=== PATIENT | female | born 1950 | race Caucasian/White ===

== ENCOUNTER 2019-06-21 13:38 | Day surgery (SDC) | payer MEDICARE, BC ==
[~2019-06-21] VITALS: Ht 166.4 cm; Wt 82.1 kg
[2019-06-21] VITALS (7 sets, daily range): BP systolic 102–133; BP diastolic 62–85; PULSE 55–116; TEMP 96.6–97.1
[2019-06-21] MEDS ORDERED: ZOLOFT 100MG100 MG PO (14:32)
[2019-06-21] MEDS ORDERED: XANAX 0.5MG0.5 MG PO (14:33)
[2019-06-21] MEDS ORDERED: RYTARY1 CE3 PO (14:34)
[2019-06-21] MEDS ORDERED: NEXIUM 40MG40 MG PO (14:35)
[2019-06-21] MEDS ORDERED: ZETIA 10MG TAB10 MG PO (14:35)
[2019-06-21] MEDS ORDERED: ZYRTEC 10MG10 MG PO (14:36)
[2019-06-21] MEDS ORDERED: VITAMIN D32000 I1 PO (14:37)
[2019-06-21] MEDS ORDERED: SYNTHROID0.05 MG/TA PO (14:38)
[2019-06-21] MEDS ORDERED: TOPROL XL 25MG25 MG PO (14:39)
[2019-06-21] MEDS ORDERED: ELIQUIS 5MG PO (14:40)
[2019-06-21] MEDS ORDERED: ASPIRIN E.C. 8181 MG PO (14:41)
--- NOTE | 2019-06-21 14:43 | NUR ---
TO RM AT 1355- CALL LIGHT IN REACH FRIEND SHAN FRIEND AT BEDSIDE/
--- NOTE | 2019-06-21 15:50 | NUR ---
Patient arrives to [facility] via cart, accompanied by [facility] RN Stephanie. Patient is alert and oriented. She ambulates with standby assist to the chair in the room. Monitoring is applied - VSS and WNL on room air. She is cold and is provided warm blankets. She denies any pain or nausea. She is offered and receives juice to drink - tolerates well. Her friend is at the bedside. Call light in reach. She may discharge home at [address] Jorge.
--- NOTE | 2019-06-21 16:20 | NUR ---
Patient is resting comfortably in room. VSS and WNL on room air. Her pulse is in the 50s, normal per the patient. Her HR 110s on admission. She states that she has a-fib.
--- NOTE | 2019-06-21 16:35 | NUR ---
Patient is resting comfortably in room, chatting with friend. Denies any pain, nausea, or needs at this time.
--- NOTE | 2019-06-21 16:50 | NUR ---
VSS and WNL on room air. Escorted to the restroom and returned to room. Monitoring reapplied.
--- NOTE | 2019-06-21 17:26 | NUR ---
Patient has met discharge criteria. Discharge instructions discussed, denies any questions, and verbalizes understanding. PIV removed with catheter intact and hemostasis achieved. Patient changes to clothing independently. She is escorted to the exit via wheelchair by staff. Discharged to home with ride in private vehicle at 1726.
== END 2019-06-21 17:27 | disposition home or self-care (01) ==
LOC: SDCO 13:38
DX: K80.50 Calculus of bile duct without cholangitis or cholecystitis without obstruction (principal); K80.20 Calculus of gallbladder without cholecystitis without obstruction; K21.9 Gastro-esophageal reflux disease without esophagitis; G20 Parkinson's disease; J45.909 Unspecified asthma, uncomplicated; I10 Essential (primary) hypertension; F41.9 Anxiety disorder, unspecified; F32.9 Major depressive disorder, single episode, unspecified; E03.9 Hypothyroidism, unspecified; Z88.0 Allergy status to penicillin; Z88.1 Allergy status to other antibiotic agents; Z88.8 Allergy status to other drugs, medicaments and biological substances; Z90.710 Acquired absence of both cervix and uterus; Z79.82 Long term (current) use of aspirin; Z86.718 Personal history of other venous thrombosis and embolism
CPT/HCPCS: C1769; J7030; Q9967

== ENCOUNTER 2019-09-27 07:49 | Day surgery (SDC) | payer MEDICARE, BC ==
[~2019-09-27] VITALS: Ht 167.6 cm; Wt 85.0 kg
[2019-09-27] VITALS (7 sets, daily range): BP systolic 104–113; BP diastolic 56–69; PULSE 60–67; TEMP 96.3–96.9
[~2019-09-27 07:49] MED LIST: ASPIRIN E.C. 8181 MG PO; ELIQUIS 5MG PO; NEXIUM 40MG40 MG PO; RYTARY1 CE3 PO; SYNTHROID0.05 MG/TA PO; TOPROL XL 25MG25 MG PO; VITAMIN D32000 I1 PO; XANAX 0.5MG0.5 MG PO; ZETIA 10MG TAB10 MG PO; ZOLOFT 100MG100 MG PO; ZYRTEC 10MG10 MG PO
[2019-09-27] MEDS ORDERED: COLACE 100100 MG/CAP PO (08:17)
[2019-09-27 08:33] LABS: INR 1.1 (0.8-3.0)
[2019-09-27 08:36] LABS: CALCIUM 9.2 mg/dL (8.4-10.2); CREATININE, serum 0.76 (0.52-1.25); HEMATOCRIT 41.2 % (37.0-47.0); HEMOGLOBIN 14.3 g/dl (12.5-16.0); MEAN CELL VOLUME 93 fl (80.0-100.0); MEAN CORPUSCULAR HEMOGLOBIN 32 pg (27.0-31.0); MEAN CORPUSCULAR HGB CONC 35 g/dl (33.0-37.0); PARTIAL THROMBOPLASTIN TIME 37.1 SECONDS (26.0-37.0); PLATELET COUNT 176 K/mm3 (130-400); POTASSIUM 4.2 mmol/L (3.4-5.0); RED BLOOD COUNT 4.41 M/mm3 (4.10-5.30); REDCELL DISTRIBUTION WIDTH-CV 13.1 % (11.5-14.5)
[2019-09-27 09:06] LABS: THYROID STIMULATING HORMONE 8.56 uIU/mL (0.465-4.680)
--- NOTE | 2019-09-27 10:00 | NUR ---
PT RETURNS TO ROOM SLIGHTLY SLEEPY.
--- NOTE | 2019-09-27 11:00 | NUR ---
PT GIVEN SNACK, ATE 100%
--- NOTE | 2019-09-27 11:25 | NUR ---
PT GETTING DRESSED AND RIDE CALLED. WENT OVER DC INFORMATION WITH PT. TAKEN DOWNSTAIRS TO RIDE
[2019-09-27] MEDS ORDERED: MULTAQ400 MG PO (13:52)
== END 2019-09-27 12:40 | disposition home or self-care (01) ==
LOC: COL.CAR 07:49
PROVIDERS: Internal Medicine Cardiovascular Disease
DX: I34.0 Nonrheumatic mitral (valve) insufficiency (principal); I48.0 Paroxysmal atrial fibrillation; I10 Essential (primary) hypertension; J45.20 Mild intermittent asthma, uncomplicated; G25.81 Restless legs syndrome; E03.9 Hypothyroidism, unspecified; F41.9 Anxiety disorder, unspecified; F32.9 Major depressive disorder, single episode, unspecified; G20 Parkinson's disease; Z79.899 Other long term (current) drug therapy; Z90.710 Acquired absence of both cervix and uterus; Z90.89 Acquired absence of other organs; Z79.82 Long term (current) use of aspirin; Z79.01 Long term (current) use of anticoagulants; Z88.0 Allergy status to penicillin; Z88.8 Allergy status to other drugs, medicaments and biological substances
CPT/HCPCS: J2704

== ENCOUNTER 2021-02-23 09:23 | Inpatient (IN) | payer MEDICARE, BC ==
[~2021-02-23] VITALS: Ht 167.6 cm; Wt 91.8 kg
[~2021-02-23 09:23] MED LIST changes: +COLACE 100100 MG/CAP PO; +MULTAQ400 MG PO
[2021-02-23] MEDS ORDERED: ERGOCALCIFER50000 IU PO (09:47)
[2021-02-23] MEDS ORDERED: MIRALAX PA17 GM/Dose PO (09:49)
[2021-02-23] MEDS ORDERED: CLEOCIN HCL300 MG PO (09:53)
[2021-02-23] MEDS ORDERED: FLEXERIL 1010 MG/TAB PO (09:54)
[2021-02-23] MEDS ORDERED: LASIX 40MG TABL40 MG PO (09:55)
[2021-02-23 09:56] VITALS: BP 93/60; PULSE 90; TEMP 97.6
[2021-02-23] MEDS ORDERED: TRAVEL SICKNESS25 MG PO (09:56)
[2021-02-23] MEDS ORDERED: KLOR-CON SPRIN10 MEQ PO (09:57)
[2021-02-23] MEDS ORDERED: ULTRACET TABL1 UDTAB PO (09:58)
[2021-02-23 10:33] LABS: BASO # 0.1 K/mm3 (0.0-0.2); BASO % 0.7 % (0.0-2.0); EOS # 0.4 K/mm3 (0.0-0.7); EOS % 5.1 % (0-4.0); GRAN # 4.6 K/mm3 (1.4-6.5); HEMOGLOBIN 11.7 g/dl (12.5-16.0); LYMPH # 1.4 K/mm3 (1.2-3.4); LYMPH % 19.8 % (20.0-51.0); MEAN CELL VOLUME 91 fl (80.0-100.0); MEAN CORPUSCULAR HEMOGLOBIN 29 pg (27.0-31.0); MEAN CORPUSCULAR HGB CONC 32 g/dl (33.0-37.0); MEAN PLATELET VOLUME 9.9 fl (7.4-10.4); MONO # 0.6 K/mm3 (0.1-0.6); MONO % 8.1 % (1.7-9.3); PLATELET COUNT 171 K/mm3 (130-400); RED BLOOD COUNT 4.03 M/mm3 (4.10-5.30); REDCELL DISTRIBUTION WIDTH-CV 14.1 % (11.5-14.5)
[2021-02-23 10:34] LABS: HEMATOCRIT 36.6 % (37.0-47.0)
[2021-02-23 10:38] LABS: INR 1.5 (0.8-3.0); PROTHROMBIN TIME 16.5 SECONDS (9.7-12.8)
[2021-02-23 10:48] LABS: ALANINE AMINOTRANSFERASE < 6 U/L (0-55); ALBUMIN 3.9 gm/dL (3.4-4.8); ALKALINE PHOSPHATASE 119 U/L (0-750); ANION GAP 10 mmol/L (7-16); AST,SGOT 13 U/L (5-34); BILIRUBIN,TOTAL 0.5 mg/dL (0.2-1.2); BLOOD UREA NITROGEN 27 mg/dL (10-20); CALCIUM 9.2 mg/dL (8.4-10.2); CARBON DIOXIDE 23 mmol/L (23-31); CHLORIDE 107 mmol/L (98-107); CREATININE, serum 0.83 mg/dL (0.57-1.11); GLUCOSE 116 mg/dL (70-99); MAGNESIUM 1.9 mg/dL (1.6-2.6); POTASSIUM 3.5 mmol/L (3.5-4.5); SODIUM 140 mmol/L (136-145)
[2021-02-23 12:18] VITALS: BP 104/71; PULSE 93; TEMP 97.9
[2021-02-23 16:28] VITALS: BP 103/74; PULSE 100; TEMP 98.6
[2021-02-23 20:00] VITALS: BP 106/72; PULSE 62; TEMP 97.6
[2021-02-23 23:50] VITALS: BP 104/82; PULSE 77; TEMP 97.7
[2021-02-24 03:16] VITALS: BP 103/71; PULSE 61; TEMP 97.8
[2021-02-24 07:26] LABS: BASO % 0.7 % (0.0-2.0); EOS # 0.3 K/mm3 (0.0-0.7); EOS % 4.6 % (0-4.0); GRAN # 3.5 K/mm3 (1.4-6.5); GRAN % 61.2 % (42.2-75.2); HEMOGLOBIN 11.3 g/dl (12.5-16.0); LYMPH # 1.4 K/mm3 (1.2-3.4); MEAN CELL VOLUME 92 fl (80.0-100.0); MEAN CORPUSCULAR HEMOGLOBIN 29 pg (27.0-31.0); MEAN CORPUSCULAR HGB CONC 32 g/dl (33.0-37.0); MEAN PLATELET VOLUME 10.1 fl (7.4-10.4); MONO # 0.5 K/mm3 (0.1-0.6); MONO % 8.1 % (1.7-9.3); PLATELET COUNT 159 K/mm3 (130-400); RED BLOOD COUNT 3.84 M/mm3 (4.10-5.30)
[2021-02-24 07:29] LABS: INR 1.4 (0.8-3.0); PROTHROMBIN TIME 15.9 SECONDS (9.7-12.8)
[2021-02-24 07:31] LABS: HEMATOCRIT 35.3 % (37.0-47.0)
[2021-02-24 08:14] VITALS: BP 89/54; PULSE 61; TEMP 97.7
[2021-02-24 08:35] VITALS: BP 92/60
[2021-02-24 12:26] VITALS: BP 96/55; PULSE 62; TEMP 97.7
[2021-02-24 12:36] LABS: CALCIUM 9.2 mg/dL (8.4-10.2); CREATININE, serum 0.8 mg/dL (0.57-1.11); MAGNESIUM 2.1 mg/dL (1.6-2.3); POTASSIUM 3.7 mmol/L (3.4-5.0)
[2021-02-24 19:09] VITALS: BP 94/64; PULSE 94; TEMP 98.5
[2021-02-25] VITALS (11 sets, daily range): BP systolic 90–114; BP diastolic 57–83; PULSE 74–110; TEMP 97.3–98
[2021-02-25 07:42] LABS: BASO % 0.6 % (0.0-2.0); EOS # 0.3 K/mm3 (0.0-0.7); EOS % 4.2 % (0-4.0); GRAN # 4.4 K/mm3 (1.4-6.5); GRAN % 63.8 % (42.2-75.2); HEMATOCRIT 40.2 % (37.0-47.0); HEMOGLOBIN 12.7 g/dl (12.5-16.0); LYMPH # 1.6 K/mm3 (1.2-3.4); LYMPH % 22.9 % (20.0-51.0); MEAN CELL VOLUME 91 fl (80.0-100.0); MEAN CORPUSCULAR HEMOGLOBIN 29 pg (27.0-31.0); MEAN CORPUSCULAR HGB CONC 32 g/dl (33.0-37.0); MEAN PLATELET VOLUME 9.9 fl (7.4-10.4); MONO # 0.6 K/mm3 (0.1-0.6); MONO % 8.4 % (1.7-9.3); PLATELET COUNT 185 K/mm3 (130-400); RED BLOOD COUNT 4.42 M/mm3 (4.10-5.30)
[2021-02-25 07:50] LABS: INR 1.3 (0.8-3.0); PROTHROMBIN TIME 14.4 SECONDS (9.7-12.8)
[2021-02-25 08:00] LABS: CALCIUM 9.5 mg/dL (8.4-10.2); CREATININE, serum 0.84 mg/dL (0.57-1.11); MAGNESIUM 2.1 mg/dL (1.6-2.6)
[2021-02-26] VITALS (14 sets, daily range): BP systolic 86–139; BP diastolic 32–99; PULSE 50–98; TEMP 97.6–98.6
[2021-02-26 06:48] LABS: BASO % 0.6 % (0.0-2.0); EOS # 0.3 K/mm3 (0.0-0.7); GRAN # 3.8 K/mm3 (1.4-6.5); GRAN % 61.9 % (42.2-75.2); HEMATOCRIT 37.8 % (37.0-47.0); HEMOGLOBIN 11.9 g/dl (12.5-16.0); LYMPH # 1.6 K/mm3 (1.2-3.4); LYMPH % 25.5 % (20.0-51.0); MEAN CELL VOLUME 93 fl (80.0-100.0); MEAN CORPUSCULAR HEMOGLOBIN 29 pg (27.0-31.0); MEAN CORPUSCULAR HGB CONC 32 g/dl (33.0-37.0); MONO # 0.5 K/mm3 (0.1-0.6); MONO % 7.7 % (1.7-9.3); PLATELET COUNT 185 K/mm3 (130-400); RED BLOOD COUNT 4.05 M/mm3 (4.10-5.30); REDCELL DISTRIBUTION WIDTH-CV 13.9 % (11.5-14.5)
[2021-02-26 06:55] LABS: INR 1.4 (0.8-3.0); PROTHROMBIN TIME 15.6 SECONDS (9.7-12.8)
[2021-02-26 07:00] LABS: CALCIUM 9.5 mg/dL (8.4-10.2); CREATININE, serum 0.84 mg/dL (0.57-1.11); MAGNESIUM 2.1 mg/dL (1.6-2.6); POTASSIUM 3.8 mmol/L (3.5-4.5)
[2021-02-26] MEDS ORDERED: BETAPACE 120MG120 MG PO (12:25)
[2021-03-25] MEDS ORDERED: BETAPACE 80MG80 MG PO (13:46)
[2021-03-25] MEDS ORDERED: BETAPACE 120MG120 MG PO (13:58)
== END 2021-02-26 18:00 | disposition home or self-care (01) | DRG 310 ==
LOC: MEDICAL 09:23
PROVIDERS: ADMIT Internal Medicine Cardiovascular Disease
PROC: 5A2204Z Restoration of Cardiac Rhythm, Single (ICD-10-PCS; principal; 2021-02-23)
DX: I48.0 Paroxysmal atrial fibrillation (principal); G20 Parkinson's disease; I27.20 Pulmonary hypertension, unspecified; I08.1 Rheumatic disorders of both mitral and tricuspid valves; Z79.01 Long term (current) use of anticoagulants; Z86.718 Personal history of other venous thrombosis and embolism; Z88.0 Allergy status to penicillin; Z20.822 Contact with and (suspected) exposure to COVID-19
CPT/HCPCS: J2704

== ENCOUNTER → 2021-03-25 | Day surgery (SDC) | payer MEDICARE, BC ==
[~2021-03-25] VITALS: Ht 167.6 cm; Wt 90.3 kg
[~2021-03-25] MED LIST changes: +BETAPACE 120MG120 MG PO; +BETAPACE 80MG80 MG PO; +CLEOCIN HCL300 MG PO; +ERGOCALCIFER50000 IU PO; +FLEXERIL 1010 MG/TAB PO; +KLOR-CON SPRIN10 MEQ PO; +LASIX 40MG TABL40 MG PO; +MIRALAX PA17 GM/Dose PO; +TRAVEL SICKNESS25 MG PO; +ULTRACET TABL1 UDTAB PO
[2021-03-25 13:47] VITALS: BP 87/43; PULSE 55; TEMP 98
--- NOTE | 2021-03-25 14:33 | NUR ---
Discharge instructions given to pt.Pt verbalizes understanding.
== END ==
LOC: COL.CAR 12:58
DX: I48.0 Paroxysmal atrial fibrillation (principal); G20 Parkinson's disease; I27.20 Pulmonary hypertension, unspecified; I10 Essential (primary) hypertension; E78.5 Hyperlipidemia, unspecified; G25.81 Restless legs syndrome; E03.9 Hypothyroidism, unspecified; K21.9 Gastro-esophageal reflux disease without esophagitis; F41.9 Anxiety disorder, unspecified; F32.A Depression, unspecified; Z79.82 Long term (current) use of aspirin; Z79.899 Other long term (current) drug therapy; Z79.01 Long term (current) use of anticoagulants; Z95.4 Presence of other heart-valve replacement; Z53.8 Procedure and treatment not carried out for other reasons
CPT/HCPCS: J2704

== ENCOUNTER 2021-08-14 08:09 | Day surgery (SDC) | payer MEDICARE, BC ==
[~2021-08-14] VITALS: Ht 167.6 cm; Wt 87.9 kg
[2021-08-14] VITALS (8 sets, daily range): BP systolic 95–107; BP diastolic 35–82; PULSE 86–121; TEMP 98
[2021-08-14 09:25] LABS: HEMOGLOBIN 10.7 g/dl (12.5-16.0); MEAN CELL VOLUME 87 fl (80.0-100.0); MEAN CORPUSCULAR HEMOGLOBIN 28 pg (27-31); MEAN CORPUSCULAR HGB CONC 32 g/dl (33.0-37.0); MEAN PLATELET VOLUME 9.8 fl (7.4-10.4); PLATELET COUNT 198 K/mm3 (130-400); RED BLOOD COUNT 3.86 M/mm3 (4.10-5.30); REDCELL DISTRIBUTION WIDTH-CV 14.1 % (11.5-14.5)
[2021-08-14 09:26] LABS: HEMATOCRIT 33.6 % (37.0-47.0)
[2021-08-14 09:31] LABS: INR 1.9 (0.8-3.0); PROTHROMBIN TIME 20.9 SECONDS (9.7-12.8)
[2021-08-14] MEDS ORDERED: PACERONE200 MG PO (09:33)
[2021-08-14 09:34] LABS: PARTIAL THROMBOPLASTIN TIME 38.7 SECONDS (26.0-37.0)
[2021-08-14] MEDS ORDERED: RYTARY1 CE3 PO (09:37)
[2021-08-14 09:40] LABS: CALCIUM 9.3 mg/dL (8.4-10.2); CREATININE, serum 0.83 mg/dL (0.57-1.11); POTASSIUM 3.4 mmol/L (3.5-4.5)
[2021-08-14 09:59] LABS: THYROID STIMULATING HORMONE 7.958 uIU/mL (0.350-4.940)
[2021-08-14] MEDS ORDERED: CLEOCIN HCL300 MG PO (10:29)
--- NOTE | 2021-08-14 12:10 | NUR ---
DC instructions were reviewed with pt and friend Kamala, both express understanding. Pt is steady on feet around room. Dressing to loop recorder insertion site remains clean, dry and intact. She has tolerated PO without difficulty. INT DC'd with catheter intact. She is assisted out to friend's car by wheelchair. Pt briefly converted to sinus rhythm following cardioversion, but went back into a fib. Dr Coyne was aware. Pt is aware of the plan to increase amiodarone dosage and return for repeat attempt at cardioversion. She has remained in a fib rhythm with rates from 100-130 post cardioversion attempt.
== END 2021-08-14 12:10 | disposition home or self-care (01) ==
LOC: COL.CAR 08:09
PROVIDERS: Internal Medicine Cardiovascular Disease
DX: I48.3 Typical atrial flutter (principal); Z79.01 Long term (current) use of anticoagulants; Z79.899 Other long term (current) drug therapy
CPT/HCPCS: J2704; J7120

== ENCOUNTER 2021-08-20 08:15 | Day surgery (SDC) | payer MEDICARE, BC ==
[~2021-08-20] VITALS: Ht 167.6 cm; Wt 90.3 kg
[~2021-08-20 08:15] MED LIST changes: +PACERONE200 MG PO
[2021-08-20 09:04] VITALS: BP 116/74; PULSE 111; TEMP 97.7
[2021-08-20 09:07] LABS: HEMATOCRIT 32.4 % (37.0-47.0); HEMOGLOBIN 10.3 g/dl (12.5-16.0); MEAN CELL VOLUME 86 fl (80.0-100.0); MEAN CORPUSCULAR HEMOGLOBIN 27 pg (27-31); MEAN CORPUSCULAR HGB CONC 32 g/dl (33.0-37.0); MEAN PLATELET VOLUME 9.4 fl (7.4-10.4); PLATELET COUNT 202 K/mm3 (130-400); RED BLOOD COUNT 3.76 M/mm3 (4.10-5.30); REDCELL DISTRIBUTION WIDTH-CV 14.2 % (11.5-14.5)
[2021-08-20 09:20] LABS: INR 1.7 (0.8-3.0)
[2021-08-20 09:21] LABS: PARTIAL THROMBOPLASTIN TIME 35.7 SECONDS (26.0-37.0)
[2021-08-20 09:28] LABS: CALCIUM 8.8 mg/dL (8.4-10.2); CREATININE, serum 0.81 mg/dL (0.57-1.11); POTASSIUM 3.5 mmol/L (3.5-4.5)
[2021-08-20] MEDS ORDERED: SYNTHROID0.05 MG/TA PO (09:31)
[2021-08-20 09:48] LABS: THYROID STIMULATING HORMONE 6.227 uIU/mL (0.350-4.940)
[2021-08-20 10:40] VITALS: BP 101/56; PULSE 57; PULSE 91
[2021-08-20 11:00] VITALS: BP 101/66; PULSE 57
[2021-08-20 11:15] VITALS: BP 101/69; PULSE 61
[2021-08-20 11:30] VITALS: BP 94/73; PULSE 61
[2021-08-20 11:45] VITALS: BP 112/68; PULSE 60
--- NOTE | 2021-08-20 12:01 | NUR ---
Discharge instructions given to pt.Pt verbalizes understanding.INT removed,catheter tip intact.Pt escorted out via wheelchair by KEVIN Garcia.
== END 2021-08-20 12:41 ==
LOC: COL.CAR 08:15
PROVIDERS: Internal Medicine Cardiovascular Disease
DX: I48.0 Paroxysmal atrial fibrillation (principal); I48.3 Typical atrial flutter; Z79.01 Long term (current) use of anticoagulants
CPT/HCPCS: J2704

== ENCOUNTER → 2021-11-26 | Outpatient (CLI) | payer MEDICARE, BC | LOC: ZCOL.LAB 14:58 | DX: E87.1 Hypo-osmolality and hyponatremia (principal); D63.8 Anemia in other chronic diseases classified elsewhere ==

== ENCOUNTER 2021-12-17 17:37 | Emergency (ER) | payer MEDICARE, BC ==
[~2021-12-17] VITALS: Ht 167.6 cm; Wt 93.2 kg
[2021-12-17 18:02] LABS: BASO % 0.5 % (0.0-2.0); EOS # 0.1 K/mm3 (0.0-0.7); EOS % 0.7 % (0.0-4.0); GRAN # 6.4 K/mm3 (1.4-6.5); LYMPH # 0.8 K/mm3 (1.2-3.4); LYMPH % 9.8 % (20.0-51.0); MEAN CELL VOLUME 85 fl (80.0-100.0); MEAN CORPUSCULAR HEMOGLOBIN 25 pg (27-31); MEAN CORPUSCULAR HGB CONC 30 g/dl (33.0-37.0); MEAN PLATELET VOLUME 10.8 fl (7.4-10.4); MONO # 1.1 K/mm3 (0.1-0.6); MONO % 13.4 % (1.7-9.3); PLATELET COUNT 246 K/mm3 (130-400); RED BLOOD COUNT 3.93 M/mm3 (4.10-5.30); REDCELL DISTRIBUTION WIDTH-CV 20.3 % (11.5-14.5)
[2021-12-17 18:03] LABS: HEMATOCRIT 33.4 % (37.0-47.0)
[2021-12-17 18:12] LABS: ALBUMIN 3.5 gm/dL (3.4-4.8); ALKALINE PHOSPHATASE 82 U/L (40-150); ANION GAP 16 mmol/L (7-16); AST,SGOT 7 U/L (5-34); BILIRUBIN,TOTAL 0.6 mg/dL (0.2-1.2); BLOOD UREA NITROGEN 51 mg/dL (10-20); CARBON DIOXIDE 21 mmol/L (23-31); CHLORIDE 99 mmol/L (98-107); CREATININE, serum 2.09 mg/dL (0.57-1.11); GLUCOSE 117 mg/dL (70-99); SODIUM 136 mmol/L (136-145); TOTAL PROTEIN 6.3 gm/dL (6.2-8.1)
[2021-12-17 18:14] LABS: ALANINE AMINOTRANSFERASE < 6 U/L (0-55)
[2021-12-17 18:18] LABS: TROPONIN-I 0.012 ng/mL (0.00-0.033)
[2021-12-17 22:45] VITALS: BP 84/65; PULSE 59; TEMP 98
== END 2021-12-17 22:25 | disposition short-term general hospital (02) ==
LOC: COL.ER 17:37
PROVIDERS: Nurse Practitioner
DX: I31.3 Pericardial effusion (noninflammatory) (principal); N39.0 Urinary tract infection, site not specified; Z95.0 Presence of cardiac pacemaker
CPT/HCPCS: J0696; J2270; J7030

== ENCOUNTER 2023-06-21 10:36 | Day surgery (SDC) | payer MEDICARE, BC ==
[2023-06-21] VITALS (10 sets, daily range): BP systolic 104–131; BP diastolic 54–102; PULSE 59–63
[~2023-06-21] VITALS: Ht 167.6 cm; Wt 83.3 kg
[~2023-06-21 10:36] MED LIST changes: +NS 1,000 ML IV SCH; +SYNTHROID0.1 MG/TAB PO
[2023-06-21] MEDS ORDERED: LOPRESSOR 225 MG/TAB PO (11:16)
[2023-06-21] MEDS ORDERED: ALDACTONE 25MG25 M1 PO (11:17)
[2023-06-21] MEDS ORDERED: CLEOCIN HC150 MG/CAP PO (11:18)
[2023-06-21] MEDS ORDERED: LOTRISONE CREAM15 GM TP (11:18)
[2023-06-21] MEDS ORDERED: ULTRACET TABL1 UDTAB PO (11:18)
[2023-06-21] MEDS ORDERED: SYNTHROID0.088 MG/T PO (11:19)
[2023-06-21] MEDS ORDERED: LASIX 80MG TABL80 MG PO (11:21)
[2023-06-21] MEDS ORDERED: COMPLETE MULTI1 TAB PO (11:22)
[2023-06-21] MEDS ORDERED: IRON TABLETS325 MG PO (11:22)
[2023-06-21] MEDS ORDERED: THERA-D 40004000 IU PO (11:24)
[2023-06-21] MEDS ORDERED: MIRALAX PA17 GM/Dose PO (11:25)
[2023-06-21] MEDS ORDERED: MILK OF MA400 MG/52 PO (11:25)
[2023-06-21] MEDS ORDERED: TYLENOL 325MG325 MG PO (11:26)
[2023-06-21] MEDS ORDERED: NS Flush 10 ML SYRINGE PRN ICA (11:30)
[2023-06-21] MEDS ORDERED: 1/2 NS 1,000 ML IV SCH (11:30)
[2023-06-21 12:02] LABS: INR 1.6 (0.8-3.0); PROTHROMBIN TIME 17.8 SECONDS (9.7-12.8)
[2023-06-21 12:14] LABS: CALCIUM 9.6 mg/dL (8.4-10.2); CREATININE, serum 0.93 mg/dL (0.57-1.11); POTASSIUM 3.8 mmol/L (3.5-4.5)
[2023-06-21 13:16] LABS: HEMATOCRIT 39.8 % (37.0-47.0); HEMOGLOBIN 13.5 g/dl (12.5-16.0); MEAN CELL VOLUME 100 fl (80.0-100.0); MEAN CORPUSCULAR HEMOGLOBIN 34 pg (27-31); MEAN CORPUSCULAR HGB CONC 34 g/dl (33.0-37.0); MEAN PLATELET VOLUME 10.4 fl (7.4-10.4); PLATELET COUNT 122 K/mm3 (130-400); RED BLOOD COUNT 3.99 M/mm3 (4.10-5.30); REDCELL DISTRIBUTION WIDTH-CV 12.2 % (11.5-14.5)
--- NOTE | 2023-06-21 15:50 | NUR ---
Pt has remained drowsy following procedure. She wakes briefly when staff speaks with her, then falls back to sleep. She had requested to continue to rest when discharge was offered 1 hr following procedure. Pt woken up at this time and assisted to restroom. Gait at her baseline. Recliner placed in room for pt to sit in while awaiting return of her friend for ride home. Pt more alert, drinking soda and eating crackers. She is conversing with staff and states she is feeling more alert and ready to go home. Call light in hand.
--- NOTE | 2023-06-21 16:23 | NUR ---
Pt ate crackers and drank soda. She is more alert, sitting up watching TV. She is assisted out to friend's car by wheelchair with belongings. She expressed understanding of DC instructions reviewed prior to discharge. IV DC'd, site wrapped with coban.
[2023-06-21] MEDS ORDERED: NS Flush 10 ML SYRINGE BID ICA SCH (21:00)
== END 2023-06-21 16:53 | disposition home or self-care (01) ==
LOC: COL.CAR 10:36
PROVIDERS: Internal Medicine Cardiovascular Disease
DX: I51.0 Cardiac septal defect, acquired (principal)